=== PATIENT | female | born 1985 | race Hispanic/Latino ===

== ENCOUNTER 2017-08-07 08:26 | Inpatient (IN) | payer MEDICAID ==
[2017-08-07] MEDS ORDERED: ePHEDrine SULFATE IV PRN ×2 (08:42→12:12)
[2017-08-07] MEDS ORDERED: BRETHINE SUB-Q PRN (08:42)
[2017-08-07] MEDS ORDERED: ZOFRAN IV PRN (08:42)
--- NOTE | 2017-08-07 08:50 | History and Physical Report ---
History of Present Illness Date of examination: 08/07/17 Date of admission: 08/07/17 08:26 Chief complaint: postdates IOL History of present illness: EDC Confirmation: 07/28/2017 Past History : 4 Term Births: 1 Premature Births: 0 Living Children: 1 Para: 1 Mult. Births: 0 Prev : 0 Prev. attempt? 0 Aborta: 2 Elect. Ab: 1 Spont. 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 of genital herpes: no Partner hx. of genital herpes: no Genetic History Congenital Heart Defect: Mom: no Dad: no Padmini Disease: Mom: no Dad: no Thalassemia Mom: no Dad: no Neural Tube Defect Mom: no Dad: no Down's Syndrome Mom: no Dad: no Gamal-Sachs Mom: no Dad: no Sickle Cell Disease/Trait Mom: no Dad: no Hemophilia Mom: no Dad: no Muscular Dystrophy Mom: no Dad: no Cystic Fibrosis Mom: no Dad: no Janette Chorea Mom: no Dad: no Mental Retardation Mom: no Dad: no Fragile X Mom: no Dad: no Other Genetic/Chromosomal Disorder Mom: no Dad: no Child w/other defect Mom: no Dad: no Active Medications (reviewed today): FORMULA 27-1 MG ORAL TABLET ( VIT-FE FUMARATE-FA) 1 po q day as directed Current Allergies (reviewed today): No known allergies Past History Past Medical History: other (see HPI) Past Surgical History: other (see HPI) JUNIOR PROJECT COORDINATOR History: other (see HPI) Family/Genetic History: other (see HPI) - Obstetrical History Expected Date of Delivery: 07/28/17 Actual Gestation: 41 Week(s) 3 Day(s) : 4 Para: 1 Hx # Term Pregnancies: 1 Number of Pregnancies: 0 Spontaneous Abortions: 1 Induced : 1 Number of Living Children: 1 Medications and Allergies Allergies Allergy/AdvReac Type Severity Reaction Status Date / Time No Known Allergies Allergy Unverified 08/07/17 09:08 Home Medications Medication Instructions Recorded Confirmed Last Taken Type No Known Home Medications [No 08/07/17 08/07/17 Unknown History Reported Home Medications] Active Meds: Active Medications Butorphanol Tartrate (Stadol) 2 mg IV Q2H PRN PRN Reason: Pain , Severe (7-10) Ephedrine Sulfate (Ephedrine Sulfate) 10 mg IV Q2M PRN PRN Reason: Hypotension Lactated Ringer's (Lactated Ringers) 1,000 mls @ 125 mls/hr IV DIRECT BALAJI Oxytocin/Sodium Chloride (Pitocin/Ns 20 Unit/1000ml Drip) 20 units in 1,000 mls @ 125 mls/hr IV DIRECT BALAJI Oxytocin/Sodium Chloride (Pitocin/Ns 30 Unit/500ml) 30 units in 500 mls @ 4 mls /hr IV TITR BALAJI; Protocol Lidocaine (Xylocaine 2%) 20 ml INFILTRATI ONCE ONE Stop: 08/07/17 08:43 Mineral Oil (Mineral Oil) 30 ml PO QHS PRN PRN Reason: Constipation Ondansetron HCl (Zofran) 4 mg IV Q8H PRN PRN Reason: Nausea And Vomiting Terbutaline Sulfate (Brethine) 0.25 mg SUB-Q ONCE PRN PRN Reason: Hyperstimulation/Hypertonicity Review of Systems All systems: negative - Physical Exam Breasts: Positive: normal Cardiovascular: Regular rate Lungs: Positive: Clear to auscultation, Normal air movement Abdomen: Positive: normal appearance, soft Genitourinary (Female): Positive: normal perenium Vulva: both: normal Vagina: Positive: normal moisture Uterus: Positive: normal size Anus/Rectum: Positive: normal perianal skin Extremities: Positive: normal Deep Tendon Reflex Grade: Normal +2 - Obstetrical FHR: category 2 Results Result Diagrams: 08/07/17 09:14 All other labs normal. Assessment and Plan 32 y/o Admitted to labor and del @ 41+3 weeks for postdates induction. GBS negative, last EFW 07/31 was 7#14oz. presentation at that time was vertex. complicated by late care starting @ 24 weeks and obesity. Admission orders in EMR. - Patient Problems (1) Late care Current Visit: Yes Status: Acute (2) Rubella non-immune status, antepartum Current Visit: Yes Status: Acute Plan to address problem: MMR post (3) 41 weeks gestation of Current Visit: Yes Status: Acute
[2017-08-07] MEDS ORDERED: PITOCin/NS 30 UNIT/500ML 30 UNITS/500 ML BAG IV SCH (09:00)
[2017-08-07] MEDS ORDERED: PITOCin/NS 20 UNIT/1000ML DRIP 20 UNITS/1,000 ML BAG IV SCH ×2 (09:00→21:00)
[2017-08-07] MEDS ORDERED: STADOL IV PRN (09:00)
[2017-08-07] MEDS ORDERED: XYLOCAINE 2% INFILTRATI NR (09:30)
[2017-08-07 09:35] LABS: Hematocrit 38.2 % (30.3-42.9); Hemoglobin 12.4 gm/dl (10.1-14.3); Mean Corpuscular HGB Conc 32 % (30-34); Mean Corpuscular Hemoglobin 29 pg (28-32); Mean Corpuscular Volume 89 fl (79-97); Platelet Count 248 K/mm3 (140-440); Red Blood Count 4.31 M/mm3 (3.65-5.03); Red Cell Distribution Width 15.4 % (13.2-15.2)
[2017-08-07] MEDS: LACTATED RINGERS 1,000 ML IV SCH ×3 (10:05→18:14)
[2017-08-07] MEDS ORDERED: NARCAN 2 MG/2 ML IV PRN (12:12)
--- NOTE | 2017-08-07 12:12 | Anesthesia Consultation ---
Anesthesia Consult and Med Hx Date of service: 08/07/17 - Airway Anesthetic Teeth Evaluation: Good ROM Head & Neck: Adequate Mental/Hyoid Distance: Adequate Mallampati Class: Class II Intubation Access Assessment: Probably Good - Pre-Operative Health Status ASA Pre-Surgery Classification: ASA3 Proposed Anesthetic Plan: Epidural, Spinal - Pulmonary Hx Asthma: No COPD: No Hx Pneumonia: No - Cardiovascular System Hx Hypertension: No - Central Nervous System Hx Seizures: No Hx Psychiatric Problems: No - Endocrine Hx Renal Disease: No Hx End Stage Renal Disease: No Hx Hypothyroidism: No Hx Hyperthyroidism: No - Hematic Hx Anemia: No Hx Sickle Cell Disease: No - Other Systems Hx Alcohol Use: No Hx Obesity: Yes
--- NOTE | 2017-08-07 12:30 | Progress Note ---
Assessment and Plan variables noted on tracing, SVE was 1cm upon admission, now 2-3. AROM - clear/ blood tinged small amount. ISE and IUPC placed without difficulty. Plan for patient to get epidural. Upon discussion of previous delivery, patient states they tried to use a vacuum and then "counted to 3 and all jumped on the top of my abdomen." Patient does not think the baby's head was delivered at the time, she says the baby was in distress and delivered quickly after staff's interventions. Discussed possible shoulder dystocia and concerns because this baby's efw 1lb > then last delivery. Patient states her child did not have any fractures or nerve damage. Patient desires to continue IOL verses operative delivery. Will proceed with caution and notify Dr. Savage. - Patient Problems (1) Late care Current Visit: Yes Status: Acute (2) Rubella non-immune status, antepartum Current Visit: Yes Status: Acute (3) 41 weeks gestation of Current Visit: Yes Status: Acute Subjective - Subjective Date of service: 08/07/17 Principal diagnosis: IUP @ 41+3, postdates IOL Interval history: EDC Confirmation: 07/28/2017 Past History : 4 Term Births: 1 Premature Births: 0 Living Children: 1 Para: 1 Mult. Births: 0 Prev : 0 Prev. attempt? 0 Aborta: 2 Elect. Ab: 1 Spont. 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 of genital herpes: no Partner hx. of genital herpes: no Genetic History Congenital Heart Defect: Mom: no Dad: no Padmini Disease: Mom: no Dad: no Thalassemia Mom: no Dad: no Neural Tube Defect Mom: no Dad: no Down's Syndrome Mom: no Dad: no Gamal-Sachs Mom: no Dad: no Sickle Cell Disease/Trait Mom: no Dad: no Hemophilia Mom: no Dad: no Muscular Dystrophy Mom: no Dad: no Cystic Fibrosis Mom: no Dad: no Carnation Chorea Mom: no Dad: no Mental Retardation Mom: no Dad: no Fragile X Mom: no Dad: no Other Genetic/Chromosomal Disorder Mom: no Dad: no Child w/other defect Mom: no Dad: no Active Medications (reviewed today): FORMULA 27-1 MG ORAL TABLET ( VIT-FE FUMARATE-FA) 1 po q day as directed Current Allergies (reviewed today): No known allergies Patient reports: movement normal, contractions Objective - Vital Signs Vital Signs: Vital Signs - 12hr 08/07/17 08/07/17 08/07/17 08:56 09:34 09:38 Temperature 98.4 F Pulse Rate 74 95 H 95 H Respiratory 18 Rate Blood Pressure 118/70 117/71 Blood Pressure 117/71 [Left] O2 Sat by Pulse 99 Oximetry 08/07/17 08/07/17 08/07/17 09:40 09:45 10:01 Temperature Pulse Rate 88 90 72 Respiratory Rate Blood Pressure Blood Pressure [Left] O2 Sat by Pulse 98 97 96 Oximetry 08/07/17 08/07/17 08/07/17 10:07 10:12 10:14 Temperature Pulse Rate 85 92 H 85 Respiratory Rate Blood Pressure Blood Pressure [Left] O2 Sat by Pulse 96 94 94 Oximetry 08/07/17 08/07/1718 10:15 10:17 10:20 Temperature Pulse Rate 81 76 79 Respiratory Rate Blood Pressure 110/66 Blood Pressure [Left] O2 Sat by Pulse 94 94 Oximetry 08/07/17 08/07/17 08/07/17 10:22 10:27 10:32 Temperature Pulse Rate 77 90 84 Respiratory Rate Blood Pressure Blood Pressure [Left] O2 Sat by Pulse 94 97 96 Oximetry 08/07/17 08/07/17 08/07/17 10:37 10:41 10:43 Temperature Pulse Rate 75 78 73 Respiratory Rate Blood Pressure 114/67 Blood Pressure [Left] O2 Sat by Pulse 95 96 Oximetry 08/07/17 08/07/17 08/07/17 10:48 10:53 11:02 Temperature Pulse Rate 74 82 73 Respiratory Rate Blood Pressure Blood Pressure [Left] O2 Sat by Pulse 96 96 97 Oximetry 08/07/17 08/07/17 08/07/17 11:07 11:12 11:17 Temperature Pulse Rate 78 80 76 Respiratory Rate Blood Pressure Blood Pressure [Left] O2 Sat by Pulse 96 96 97 Oximetry 08/07/17 08/07/17 08/07/17 11:19 11:22 11:27 Temperature Pulse Rate 83 71 88 Respiratory Rate Blood Pressure 110/68 Blood Pressure [Left] O2 Sat by Pulse 98 96 Oximetry 08/07/17 08/07/17 08/07/17 11:32 11:37 11:42 Temperature Pulse Rate 72 85 77 Respiratory Rate Blood Pressure 113/63 Blood Pressure [Left] O2 Sat by Pulse 96 96 97 Oximetry 08/07/17 08/07/17 08/07/17 11:47 11:52 11:57 Temperature Pulse Rate 77 75 74 Respiratory Rate Blood Pressure Blood Pressure [Left] O2 Sat by Pulse 97 96 98 Oximetry 08/07/17 08/07/17 08/07/17 12:02 12:07 12:11 Temperature Pulse Rate 72 69 70 Respiratory 20 Rate Blood Pressure 112/63 Blood Pressure [Left] O2 Sat by Pulse 98 97 Oximetry 08/07/17 12:12 Temperature Pulse Rate 77 Respiratory Rate Blood Pressure Blood Pressure [Left] O2 Sat by Pulse 96 Oximetry - Exam Breasts: normal Cardiovascular: Regular rate Lungs: Clear to auscultation, Normal air movement Abdomen: Present: normal appearance, soft Vulva: both: normal FHR: category 2 Uterine Contraction Monitor Mode: Internal Cervical Dilatation: 2.5 (posterior) Cervical Effacement Percentage: 70 station: -1 Uterine Contraction Frequency (min): 2-3 Uterine Contraction Duration: 60 Uterine Contraction Pattern: Regular Uterine Contraction Intensity: Mild Extremities: normal Deep Tendon Reflex Grade: Normal +2 - Labs Labs: Abnormal Labs 08/07/17 09:14 WBC 14.7 H RDW 15.4 H Laboratory Results - last 24 hr 08/07/17 08/07/17 08/07/17 09:14 09:14 09:14 WBC 14.7 H RBC 4.31 Hgb 12.4 Hct 38.2 MCV 89 MCH 29 MCHC 32 RDW 15.4 H Plt Count 248 RPR Nonreactive Blood Type A POSITIVE Antibody Screen Negative
[2017-08-07] MEDS ORDERED: fentaNYL-BUPIV 2 MCG/ML-0.125% 200 MCG/100 ML BAG EPIDURAL SCH (13:00)
--- NOTE | 2017-08-07 16:29 | Progress Note ---
Assessment and Plan IUPC replaced, SVE still posterior but soft/stretchy /-1, head well applied. no moulding or caput noted at this time. Pitocin off d/t decels in fht. Will restart pitocin and continue to monitor. - Patient Problems (1) Late care Current Visit: Yes Status: Acute (2) Rubella non-immune status, antepartum Current Visit: Yes Status: Acute (3) 41 weeks gestation of Current Visit: Yes Status: Acute Subjective - Subjective Date of service: 08/07/17 Principal diagnosis: IUP @ 41+3, postdates IOL Interval history: EDC Confirmation: 07/28/2017 Past History : 4 Term Births: 1 Premature Births: 0 Living Children: 1 Para: 1 Mult. Births: 0 Prev : 0 Prev. attempt? 0 Aborta: 2 Elect. Ab: 1 Spont. 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 of genital herpes: no Partner hx. of genital herpes: no Genetic History Congenital Heart Defect: Mom: no Dad: no Padmini Disease: Mom: no Dad: no Thalassemia Mom: no Dad: no Neural Tube Defect Mom: no Dad: no Down's Syndrome Mom: no Dad: no Gamal-Sachs Mom: no Dad: no Sickle Cell Disease/Trait Mom: no Dad: no Hemophilia Mom: no Dad: no Muscular Dystrophy Mom: no Dad: no Cystic Fibrosis Mom: no Dad: no Winston Chorea Mom: no Dad: no Mental Retardation Mom: no Dad: no Fragile X Mom: no Dad: no Other Genetic/Chromosomal Disorder Mom: no Dad: no Child w/other defect Mom: no Dad: no Active Medications (reviewed today): FORMULA 27-1 MG ORAL TABLET ( VIT-FE FUMARATE-FA) 1 po q day as directed Current Allergies (reviewed today): No known allergies Patient reports: movement normal, no new complaints (comfortable s/p epidural) Objective - Vital Signs Vital Signs: Vital Signs - 12hr 08/07/17 08/07/17 08/07/17 08:56 09:34 09:38 Temperature 98.4 F Pulse Rate 74 95 H 95 H Respiratory 18 Rate Blood Pressure 118/70 117/71 Blood Pressure 117/71 [Left] O2 Sat by Pulse 99 Oximetry 08/07/17 08/07/17 08/07/17 09:40 09:45 10:01 Temperature Pulse Rate 88 90 72 Respiratory Rate Blood Pressure Blood Pressure [Left] O2 Sat by Pulse 98 97 96 Oximetry 08/07/17 08/07/17 08/07/17 10:07 10:12 10:14 Temperature Pulse Rate 85 92 H 85 Respiratory Rate Blood Pressure Blood Pressure [Left] O2 Sat by Pulse 96 94 94 Oximetry 08/07/17 08/07/17 08/07/17 10:15 10:17 10:20 Temperature Pulse Rate 81 76 79 Respiratory Rate Blood Pressure 110/66 Blood Pressure [Left] O2 Sat by Pulse 94 94 Oximetry 08/07/17 08/07/17 08/07/17 10:22 10:27 10:32 Temperature Pulse Rate 77 90 84 Respiratory Rate Blood Pressure Blood Pressure [Left] O2 Sat by Pulse 94 97 96 Oximetry 08/07/17 08/07/17 08/07/17 10:37 10:41 10:43 Temperature Pulse Rate 75 78 73 Respiratory Rate Blood Pressure 114/67 Blood Pressure [Left] O2 Sat by Pulse 95 96 Oximetry 08/07/17 08/07/17 08/07/17 10:48 10:53 11:02 Temperature Pulse Rate 74 82 73 Respiratory Rate Blood Pressure Blood Pressure [Left] O2 Sat by Pulse 96 96 97 Oximetry 08/07/17 08/07/17 08/07/17 11:07 11:12 11:17 Temperature Pulse Rate 78 80 76 Respiratory Rate Blood Pressure Blood Pressure [Left] O2 Sat by Pulse 96 96 97 Oximetry 08/07/17 08/07/17 08/07/17 11:19 11:22 11:27 Temperature Pulse Rate 83 71 88 Respiratory Rate Blood Pressure 110/68 Blood Pressure [Left] O2 Sat by Pulse 98 96 Oximetry 08/07/17 08/07/17 08/07/17 11:32 11:37 11:42 Temperature Pulse Rate 72 85 77 Respiratory Rate Blood Pressure 113/63 Blood Pressure [Left] O2 Sat by Pulse 96 96 97 Oximetry 08/07/17 08/07/17 08/07/17 11:47 11:52 11:57 Temperature Pulse Rate 77 75 74 Respiratory Rate Blood Pressure Blood Pressure [Left] O2 Sat by Pulse 97 96 98 Oximetry 08/07/17 08/07/17 08/07/17 12:02 12:07 12:11 Temperature Pulse Rate 72 69 70 Respiratory 20 Rate Blood Pressure 112/63 Blood Pressure [Left] O2 Sat by Pulse 98 97 Oximetry 08/07/17 08/07/17 08/07/17 12:12 12:17 12:22 Temperature Pulse Rate 77 70 78 Respiratory Rate Blood Pressure Blood Pressure [Left] O2 Sat by Pulse 96 97 96 Oximetry 08/07/17 08/07/17 08/07/17 12:27 12:32 12:37 Temperature Pulse Rate 86 80 71 Respiratory 18 Rate Blood Pressure Blood Pressure [Left] O2 Sat by Pulse 97 96 97 Oximetry 08/07/17 08/07/17 08/07/17 12:41 12:42 12:47 Temperature Pulse Rate 67 65 69 Respiratory Rate Blood Pressure 100/59 Blood Pressure [Left] O2 Sat by Pulse 97 96 Oximetry 08/07/17 08/07/17 08/07/17 12:51 12:52 12:57 Temperature Pulse Rate 59 L 59 L 73 Respiratory Rate Blood Pressure Blood Pressure [Left] O2 Sat by Pulse 94 97 98 Oximetry 08/07/17 08/07/17 08/07/17 13:02 13:07 13:08 Temperature Pulse Rate 67 72 75 Respiratory Rate Blood Pressure 120/62 Blood Pressure [Left] O2 Sat by Pulse 98 96 Oximetry 08/07/17 08/07/17 08/07/17 13:10 13:12 13:13 Temperature Pulse Rate 80 69 69 Respiratory Rate Blood Pressure 122/65 139/55 Blood Pressure [Left] O2 Sat by Pulse 96 Oximetry 08/07/17 08/07/17 08/07/17 13:14 13:15 13:16 Temperature Pulse Rate 57 L 60 57 L Respiratory Rate Blood Pressure 124/63 112/59 Blood Pressure [Left] O2 Sat by Pulse 94 Oximetry 08/07/17 08/07/17 08/07/17 13:17 13:18 13:22 Temperature Pulse Rate 65 66 78 Respiratory Rate Blood Pressure 113/60 Blood Pressure [Left] O2 Sat by Pulse 96 97 Oximetry 08/07/17 08/07/17 08/07/17 13:27 13:32 13:33 Temperature Pulse Rate 73 78 77 Respiratory Rate Blood Pressure Blood Pressure [Left] O2 Sat by Pulse 97 97 94 Oximetry 08/07/17 08/07/17 08/07/17 13:37 13:42 13:47 Temperature Pulse Rate 69 68 81 Respiratory Rate Blood Pressure Blood Pressure [Left] O2 Sat by Pulse 96 95 97 Oximetry 08/07/17 08/07/17 08/07/17 13:51 13:52 13:57 Temperature Pulse Rate 74 64 60 Respiratory Rate Blood Pressure 128/57 Blood Pressure [Left] O2 Sat by Pulse 98 98 Oximetry 08/07/17 08/07/17 08/07/17 14:00 14:02 14:07 Temperature Pulse Rate 63 69 83 Respiratory Rate Blood Pressure Blood Pressure [Left] O2 Sat by Pulse 94 98 97 Oximetry 08/07/17 08/07/17 08/07/17 14:12 14:17 14:21 Temperature Pulse Rate 59 L 60 65 Respiratory Rate Blood Pressure 111/59 Blood Pressure [Left] O2 Sat by Pulse 98 98 Oximetry 08/07/17 08/07/17 08/07/17 14:22 14:26 14:27 Temperature Pulse Rate 72 78 71 Respiratory Rate Blood Pressure Blood Pressure [Left] O2 Sat by Pulse 97 94 98 Oximetry 08/07/17 08/07/17 08/07/17 14:32 14:34 14:37 Temperature Pulse Rate 61 71 64 Respiratory Rate Blood Pressure Blood Pressure [Left] O2 Sat by Pulse 97 94 97 Oximetry 08/07/17 08/07/17 08/07/17 14:42 14:47 14:50 Temperature Pulse Rate 59 L 65 59 L Respiratory Rate Blood Pressure 105/58 Blood Pressure [Left] O2 Sat by Pulse 100 99 Oximetry 08/07/17 08/07/17 08/07/17 14:52 14:57 15:02 Temperature Pulse Rate 61 60 63 Respiratory Rate Blood Pressure Blood Pressure [Left] O2 Sat by Pulse 99 96 94 Oximetry 08/07/17 08/07/17 08/07/17 15:03 15:07 15:12 Temperature Pulse Rate 63 78 60 Respiratory Rate Blood Pressure Blood Pressure [Left] O2 Sat by Pulse 94 97 95 Oximetry 08/07/17 08/07/17 08/07/17 15:13 15:17 15:19 Temperature Pulse Rate 72 64 70 Respiratory Rate Blood Pressure 105/57 Blood Pressure [Left] O2 Sat by Pulse 94 100 Oximetry 08/07/17 08/07/17 08/07/17 15:22 15:27 15:32 Temperature Pulse Rate 62 78 66 Respiratory Rate Blood Pressure Blood Pressure [Left] O2 Sat by Pulse 97 97 97 Oximetry 08/07/17 08/07/17 08/07/17 15:34 15:38 15:43 Temperature Pulse Rate 61 63 Respiratory 18 Rate Blood Pressure Blood Pressure [Left] O2 Sat by Pulse 100 99 Oximetry 08/07/17 08/07/17 08/07/17 15:48 15:50 15:53 Temperature Pulse Rate 72 61 82 Respiratory Rate Blood Pressure 115/58 Blood Pressure [Left] O2 Sat by Pulse 98 97 Oximetry 08/07/17 08/07/17 08/07/17 15:58 16:03 16:08 Temperature Pulse Rate 63 72 94 H Respiratory Rate Blood Pressure Blood Pressure [Left] O2 Sat by Pulse 97 98 98 Oximetry 08/07/17 08/07/17 08/07/17 16:13 16:18 16:20 Temperature Pulse Rate 63 75 66 Respiratory Rate Blood Pressure 111/67 Blood Pressure [Left] O2 Sat by Pulse 100 98 Oximetry 08/07/17 08/07/17 16:23 16:28 Temperature Pulse Rate 69 79 Respiratory Rate Blood Pressure Blood Pressure [Left] O2 Sat by Pulse 100 100 Oximetry - Exam Breasts: normal Cardiovascular: Regular rate Lungs: Clear to auscultation, Normal air movement Abdomen: Present: normal appearance, soft Vulva: both: normal Uterus: Present: normal FHR: auscultation normal, category 1 Uterine Contraction Monitor Mode: Internal Cervical Dilatation: 4 Cervical Effacement Percentage: 85 station: -1 Uterine Contraction Frequency (min): 3-4 Uterine Contraction Duration: 60 Uterine Contraction Pattern: Regular Uterine Tone Measurement Phase: Contraction Uterine Contraction Intensity: Mild Extremities: normal Deep Tendon Reflex Grade: Normal +2 - Labs Labs: Abnormal Labs 08/07/17 09:14 WBC 14.7 H RDW 15.4 H Laboratory Results - last 24 hr 08/07/17 08/07/17 08/07/17 09:14 09:14 09:14 WBC 14.7 H RBC 4.31 Hgb 12.4 Hct 38.2 MCV 89 MCH 29 MCHC 32 RDW 15.4 H Plt Count 248 RPR Nonreactive Blood Type A POSITIVE Antibody Screen Negative
[2017-08-07] MEDS ORDERED: BICITRA PO ONE (20:32)
[2017-08-07] MEDS ORDERED: REGLAN IV ONE (20:32)
[2017-08-07] MEDS ORDERED: PEPCID IV ONE (20:32)
--- NOTE | 2017-08-07 20:44 | Progress Note ---
Assessment and Plan - Patient Problems (1) Failure of cervical dilation Current Visit: Yes Status: Acute Plan to address problem: No cervical change since 0. Options reviewed as well as risks. questions were encouraged and answered, consents were reviewed and signed. She voiced understanding and desires to proceed with delivery. (2) 41 weeks gestation of Current Visit: Yes Status: Acute (3) Late care Current Visit: Yes Status: Acute (4) Rubella non-immune status, antepartum Current Visit: Yes Status: Acute Subjective - Subjective Principal diagnosis: IUP @ 41+3, postdates IOL Patient reports: movement normal, no new complaints (comfortable s/p epidural) Objective - Vital Signs Vital Signs: Vital Signs - 12hr 08/07/17 08/07/17 08/07/17 08:56 09:34 09:38 Temperature 98.4 F Pulse Rate 74 95 H 95 H Respiratory 18 Rate Blood Pressure 118/70 117/71 Blood Pressure 117/71 [Left] O2 Sat by Pulse 99 Oximetry 08/07/17 08/07/17 08/07/17 09:40 09:45 10:01 Temperature Pulse Rate 88 90 72 Respiratory Rate Blood Pressure Blood Pressure [Left] O2 Sat by Pulse 98 97 96 Oximetry 08/07/17 08/07/17 08/07/17 10:07 10:12 10:14 Temperature Pulse Rate 85 92 H 85 Respiratory Rate Blood Pressure Blood Pressure [Left] O2 Sat by Pulse 96 94 94 Oximetry 08/07/17 08/07/17 08/07/17 10:15 10:17 10:20 Temperature Pulse Rate 81 76 79 Respiratory Rate Blood Pressure 110/66 Blood Pressure [Left] O2 Sat by Pulse 94 94 Oximetry 08/07/17 08/07/17 08/07/17 10:22 10:27 10:32 Temperature Pulse Rate 77 90 84 Respiratory Rate Blood Pressure Blood Pressure [Left] O2 Sat by Pulse 94 97 96 Oximetry 08/07/17 08/07/17 08/07/17 10:37 10:41 10:43 Temperature Pulse Rate 75 78 73 Respiratory Rate Blood Pressure 114/67 Blood Pressure [Left] O2 Sat by Pulse 95 96 Oximetry 08/07/17 08/07/17 08/07/17 10:48 10:53 11:02 Temperature Pulse Rate 74 82 73 Respiratory Rate Blood Pressure Blood Pressure [Left] O2 Sat by Pulse 96 96 97 Oximetry 08/07/17 08/07/17 08/07/17 11:07 11:12 11:17 Temperature Pulse Rate 78 80 76 Respiratory Rate Blood Pressure Blood Pressure [Left] O2 Sat by Pulse 96 96 97 Oximetry 08/07/17 08/07/17 08/07/17 11:19 11:22 11:27 Temperature Pulse Rate 83 71 88 Respiratory Rate Blood Pressure 110/68 Blood Pressure [Left] O2 Sat by Pulse 98 96 Oximetry 08/07/17 08/07/17 08/07/17 11:32 11:37 11:42 Temperature Pulse Rate 72 85 77 Respiratory Rate Blood Pressure 113/63 Blood Pressure [Left] O2 Sat by Pulse 96 96 97 Oximetry 08/07/17 08/07/17 08/07/17 11:47 11:52 11:57 Temperature Pulse Rate 77 75 74 Respiratory Rate Blood Pressure Blood Pressure [Left] O2 Sat by Pulse 97 96 98 Oximetry 08/07/17 08/07/17 08/07/17 12:02 12:07 12:11 Temperature Pulse Rate 72 69 70 Respiratory 20 Rate Blood Pressure 112/63 Blood Pressure [Left] O2 Sat by Pulse 98 97 Oximetry 08/07/17 08/07/17 08/07/17 12:12 12:17 12:22 Temperature Pulse Rate 77 70 78 Respiratory Rate Blood Pressure Blood Pressure [Left] O2 Sat by Pulse 96 97 96 Oximetry 08/07/17 08/07/17 08/07/17 12:27 12:32 12:37 Temperature Pulse Rate 86 80 71 Respiratory 18 Rate Blood Pressure Blood Pressure [Left] O2 Sat by Pulse 97 96 97 Oximetry 08/07/17 08/07/17 08/07/17 12:41 12:42 12:47 Temperature Pulse Rate 67 65 69 Respiratory Rate Blood Pressure 100/59 Blood Pressure [Left] O2 Sat by Pulse 97 96 Oximetry 08/07/17 08/07/17 08/07/17 12:51 12:52 12:57 Temperature Pulse Rate 59 L 59 L 73 Respiratory Rate Blood Pressure Blood Pressure [Left] O2 Sat by Pulse 94 97 98 Oximetry 08/07/17 08/07/17 08/07/17 13:02 13:07 13:08 Temperature Pulse Rate 67 72 75 Respiratory Rate Blood Pressure 120/62 Blood Pressure [Left] O2 Sat by Pulse 98 96 Oximetry 08/07/17 08/07/17 08/07/17 13:10 13:12 13:13 Temperature Pulse Rate 80 69 69 Respiratory Rate Blood Pressure 122/65 139/55 Blood Pressure [Left] O2 Sat by Pulse 96 Oximetry 08/07/17 08/07/17 08/07/17 13:14 13:15 13:16 Temperature Pulse Rate 57 L 60 57 L Respiratory Rate Blood Pressure 124/63 112/59 Blood Pressure [Left] O2 Sat by Pulse 94 Oximetry 08/07/17 08/07/17 08/07/17 13:17 13:18 13:22 Temperature Pulse Rate 65 66 78 Respiratory Rate Blood Pressure 113/60 Blood Pressure [Left] O2 Sat by Pulse 96 97 Oximetry 08/07/17 08/07/17 08/07/17 13:27 13:32 13:33 Temperature Pulse Rate 73 78 77 Respiratory Rate Blood Pressure Blood Pressure [Left] O2 Sat by Pulse 97 97 94 Oximetry 08/07/17 08/07/17 08/07/17 13:37 13:42 13:47 Temperature Pulse Rate 69 68 81 Respiratory Rate Blood Pressure Blood Pressure [Left] O2 Sat by Pulse 96 95 97 Oximetry 08/07/17 08/07/17 08/07/17 13:51 13:52 13:57 Temperature Pulse Rate 74 64 60 Respiratory Rate Blood Pressure 128/57 Blood Pressure [Left] O2 Sat by Pulse 98 98 Oximetry 08/07/17 08/07/17 08/07/17 14:00 14:02 14:07 Temperature Pulse Rate 63 69 83 Respiratory Rate Blood Pressure Blood Pressure [Left] O2 Sat by Pulse 94 98 97 Oximetry 08/07/17 08/07/17 08/07/17 14:12 14:17 14:21 Temperature Pulse Rate 59 L 60 65 Respiratory Rate Blood Pressure 111/59 Blood Pressure [Left] O2 Sat by Pulse 98 98 Oximetry 08/07/17 08/07/17 08/07/17 14:22 14:26 14:27 Temperature Pulse Rate 72 78 71 Respiratory Rate Blood Pressure Blood Pressure [Left] O2 Sat by Pulse 97 94 98 Oximetry 08/07/17 08/07/17 08/07/17 14:32 14:34 14:37 Temperature Pulse Rate 61 71 64 Respiratory Rate Blood Pressure Blood Pressure [Left] O2 Sat by Pulse 97 94 97 Oximetry 08/07/17 08/07/17 08/07/17 14:42 14:47 14:50 Temperature Pulse Rate 59 L 65 59 L Respiratory Rate Blood Pressure 105/58 Blood Pressure [Left] O2 Sat by Pulse 100 99 Oximetry 08/07/17 08/07/17 08/07/17 14:52 14:57 15:02 Temperature Pulse Rate 61 60 63 Respiratory Rate Blood Pressure Blood Pressure [Left] O2 Sat by Pulse 99 96 94 Oximetry 08/07/17 08/07/17 08/07/17 15:03 15:07 15:12 Temperature Pulse Rate 63 78 60 Respiratory Rate Blood Pressure Blood Pressure [Left] O2 Sat by Pulse 94 97 95 Oximetry 08/07/17 08/07/17 08/07/17 15:13 15:17 15:19 Temperature Pulse Rate 72 64 70 Respiratory Rate Blood Pressure 105/57 Blood Pressure [Left] O2 Sat by Pulse 94 100 Oximetry 08/07/17 08/07/17 08/07/17 15:22 15:27 15:32 Temperature Pulse Rate 62 78 66 Respiratory Rate Blood Pressure Blood Pressure [Left] O2 Sat by Pulse 97 97 97 Oximetry 08/07/17 08/07/17 08/07/17 15:34 15:38 15:43 Temperature Pulse Rate 61 63 Respiratory 18 Rate Blood Pressure Blood Pressure [Left] O2 Sat by Pulse 100 99 Oximetry 08/07/17 08/07/17 08/07/17 15:48 15:50 15:53 Temperature Pulse Rate 72 61 82 Respiratory Rate Blood Pressure 115/58 Blood Pressure [Left] O2 Sat by Pulse 98 97 Oximetry 08/07/17 08/07/17 08/07/17 15:58 16:03 16:08 Temperature Pulse Rate 63 72 94 H Respiratory Rate Blood Pressure Blood Pressure [Left] O2 Sat by Pulse 97 98 98 Oximetry 08/07/17 08/07/17 08/07/17 16:13 16:18 16:20 Temperature Pulse Rate 63 75 66 Respiratory Rate Blood Pressure 111/67 Blood Pressure [Left] O2 Sat by Pulse 100 98 Oximetry 08/07/17 08/07/17 08/07/17 16:23 16:28 16:33 Temperature Pulse Rate 69 79 92 H Respiratory Rate Blood Pressure Blood Pressure [Left] O2 Sat by Pulse 100 100 97 Oximetry 08/07/17 08/07/17 08/07/17 16:38 16:40 16:43 Temperature Pulse Rate 87 83 94 H Respiratory Rate Blood Pressure Blood Pressure [Left] O2 Sat by Pulse 97 92 96 Oximetry 08/07/17 08/07/17 08/07/17 16:48 16:52 16:53 Temperature Pulse Rate 67 98 H 102 H Respiratory Rate Blood Pressure Blood Pressure [Left] O2 Sat by Pulse 99 94 93 Oximetry 08/07/17 08/07/17 08/07/17 16:57 16:58 17:03 Temperature Pulse Rate 83 68 95 H Respiratory Rate Blood Pressure Blood Pressure [Left] O2 Sat by Pulse 92 100 95 Oximetry 08/07/17 08/07/17 08/07/17 17:08 17:13 17:18 Temperature Pulse Rate 67 88 98 H Respiratory Rate Blood Pressure Blood Pressure [Left] O2 Sat by Pulse 99 97 100 Oximetry 08/07/17 08/07/17 08/07/17 17:19 17:23 17:28 Temperature Pulse Rate 76 74 82 Respiratory Rate Blood Pressure 105/54 Blood Pressure [Left] O2 Sat by Pulse 99 99 Oximetry 08/07/17 08/07/17 08/07/17 17:33 17:38 17:43 Temperature Pulse Rate 86 80 76 Respiratory Rate Blood Pressure Blood Pressure [Left] O2 Sat by Pulse 98 98 97 Oximetry 08/07/17 08/07/17 08/07/17 17:48 17:51 17:53 Temperature Pulse Rate 99 H 74 72 Respiratory Rate Blood Pressure 105/52 Blood Pressure [Left] O2 Sat by Pulse 97 96 Oximetry 08/07/17 08/07/17 08/07/17 17:58 18:03 18:07 Temperature Pulse Rate 73 94 H 99 H Respiratory Rate Blood Pressure Blood Pressure [Left] O2 Sat by Pulse 99 96 94 Oximetry 08/07/17 08/07/17 08/07/17 18:08 18:12 18:13 Temperature Pulse Rate 104 H 98 H 72 Respiratory Rate Blood Pressure Blood Pressure [Left] O2 Sat by Pulse 98 94 98 Oximetry 08/07/17 08/07/17 08/07/17 18:17 18:18 18:19 Temperature Pulse Rate 89 94 H 111 H Respiratory Rate Blood Pressure 96/56 Blood Pressure [Left] O2 Sat by Pulse 93 97 Oximetry 08/07/17 08/07/17 08/07/17 18:23 18:28 18:29 Temperature Pulse Rate 98 H 104 H 107 H Respiratory Rate Blood Pressure Blood Pressure [Left] O2 Sat by Pulse 95 95 94 Oximetry 08/07/17 08/07/17 08/07/17 18:33 18:38 18:43 Temperature Pulse Rate 92 H 80 76 Respiratory Rate Blood Pressure Blood Pressure [Left] O2 Sat by Pulse 95 96 98 Oximetry 08/07/17 08/07/17 08/07/17 18:48 18:49 18:51 Temperature Pulse Rate 100 H 82 78 Respiratory Rate Blood Pressure 109/56 Blood Pressure [Left] O2 Sat by Pulse 98 94 Oximetry 08/07/17 08/07/17 08/07/17 18:53 18:58 19:01 Temperature Pulse Rate 74 92 H 86 Respiratory Rate Blood Pressure Blood Pressure [Left] O2 Sat by Pulse 98 95 94 Oximetry 08/07/17 08/07/17 08/07/17 19:03 19:05 19:08 Temperature 99.1 F Pulse Rate 67 72 72 Respiratory 16 Rate Blood Pressure Blood Pressure 103/56 [Left] O2 Sat by Pulse 98 98 98 Oximetry 08/07/17 08/07/17 08/07/17 19:10 19:13 19:18 Temperature Pulse Rate 86 95 H 94 H Respiratory Rate Blood Pressure 103/56 Blood Pressure [Left] O2 Sat by Pulse 96 95 Oximetry 08/07/17 08/07/17 08/07/17 19:20 19:21 19:23 Temperature Pulse Rate 84 71 81 Respiratory Rate Blood Pressure 99/51 Blood Pressure [Left] O2 Sat by Pulse 94 95 Oximetry 08/07/17 08/07/17 08/07/17 19:25 19:28 19:31 Temperature Pulse Rate 94 H 76 78 Respiratory Rate Blood Pressure Blood Pressure [Left] O2 Sat by Pulse 94 97 94 Oximetry 08/07/17 08/07/17 08/07/17 19:33 19:38 19:39 Temperature Pulse Rate 94 H 88 80 Respiratory Rate Blood Pressure Blood Pressure [Left] O2 Sat by Pulse 95 97 94 Oximetry 08/07/17 08/07/17 08/07/17 19:43 19:46 19:48 Temperature Pulse Rate 87 86 91 H Respiratory Rate Blood Pressure Blood Pressure [Left] O2 Sat by Pulse 94 94 95 Oximetry 04/07/2208/07/17 08/07/17 19:49 19:52 19:53 Temperature Pulse Rate 93 H 73 92 H Respiratory Rate Blood Pressure 113/51 Blood Pressure [Left] O2 Sat by Pulse 94 95 Oximetry 08/07/17 08/07/17 08/07/17 19:58 20:02 20:03 Temperature Pulse Rate 85 88 93 H Respiratory Rate Blood Pressure Blood Pressure [Left] O2 Sat by Pulse 96 94 96 Oximetry 08/07/17 08/07/17 08/07/17 20:07 20:08 20:13 Temperature Pulse Rate 84 93 H 77 Respiratory Rate Blood Pressure Blood Pressure [Left] O2 Sat by Pulse 94 99 96 Oximetry 08/07/17 08/07/17 08/07/17 20:18 20:20 20:23 Temperature Pulse Rate 83 76 96 H Respiratory Rate Blood Pressure 118/70 Blood Pressure [Left] O2 Sat by Pulse 100 98 Oximetry 08/07/17 08/07/17 20:28 20:33 Temperature Pulse Rate 79 87 Respiratory Rate Blood Pressure Blood Pressure [Left] O2 Sat by Pulse 96 99 Oximetry - Exam Breasts: deferred Lungs: Normal air movement Vulva: both: normal FHR: category 2 (occasional late, good variability) Cervical Dilatation: 5 (swollen) Cervical Effacement Percentage: 70 station: -2 Uterine Contraction Pattern: Regular - Labs Labs: Abnormal Labs 08/07/17 09:14 WBC 14.7 H RDW 15.4 H Laboratory Results - last 24 hr 08/07/17 08/07/17 08/07/17 09:14 09:14 09:14 WBC 14.7 H RBC 4.31 Hgb 12.4 Hct 38.2 MCV 89 MCH 29 MCHC 32 RDW 15.4 H Plt Count 248 RPR Nonreactive Blood Type A POSITIVE Antibody Screen Negative
[2017-08-07] MEDS ORDERED: NACL 0.9% IR ONE (20:45)
[2017-08-07] MEDS ORDERED: WATER FOR IRRIG STERILE IR ONE (20:45)
[2017-08-07] MEDS ORDERED: LACTATED RINGERS 1,000 ML IV SCH (21:00)
[2017-08-07] MEDS ORDERED: ASTRAMORPH PF 10MG/10ML ONE (21:30)
[2017-08-07] MEDS ORDERED: MINERAL OIL PO PRN (22:00)
--- NOTE | 2017-08-07 22:22 | Operative Report ---
Operative Report Operative Report: Date: 08/07/2017 Preoperative diagnosis: 1. Intrauterine at 41 weeks 2. Failure to dilate Postoperative diagnosis: 1. Intrauterine at 41 weeks 2. Failure to dilate Procedure: Low uterine transverse incision for delivery Surgeon: Ana Savage MD Pbx Wire Chief: [] Anesthesia: Epidural Anesthesiologist: Dr. Perez Estimated blood loss: 600 mL Urine out: 150 mL Findings: Live born female . Weight 8 lbs. 12 oz. Apgars 8 at 1 minute and 9 at 9 minutes. Uterus normal, tubes normal, ovaries normal. Procedure: After risk, benefits, complications, consequences and alternatives for this procedure were discussed with patient and consents were reviewed and signed, she was taken to the OR where epidural anesthesia was bolused. She was then placed in the left lateral tilt position, and prepped and draped in the usual sterile fashion. Timeout was performed, and an appropriate level of anesthesia was noted, a Pfannenstiel incision was made and extended to the fascia which was incised and extended in the lateral directions. The overlying fascia was sharply dissected away from the underlying rectus muscles in the superior and inferior directions. The midline was entered bluntly. The vesicouterine fold was incised and with blunt dissection the bladder flap was created. A transverse incision was made in the lower uterine segment and extended in superiolateral direction with finger fractionation. A small amount of clear fluid was noted. The infant was delivered from cephalic position. Mouth and nose were bulb suctioned. Spontaneous cry and excellent tone were noted. Cord was doubly clamped and cut. The infant was given to /resuscitation team present. The placenta was manually extracted. The uterus was then exteriorized and cleared of any further products of conception or placental tissue. The incision was reapproximated using 0 Vicryl in a running interlocking stitch. Grossly normal uterus, tubes and ovaries were noted. Once hemostasis was noted, the uterus was allowed back into the pelvic cavity. The pelvis was irrigated with warm normal saline. Again hemostasis was noted . Surgicel applied for further hemostasis. Interceed was then placed to prevent adhesions. Then attention was turned to the rectus muscles. The rectus muscles reapproximated using 0 Vicryl in a simple interrupted stitch x 3. Once hemostasis was noted, the fascia was reapproximated using 0 Vicryl running stitch fashion. Once hemostasis was noted skin incision was reapproximated using 4-0 Vicryl on a Beni needle in a subcuticular manner. Counts were correct 3. Patient tolerated procedure well state recovery room in stable condition.
[2017-08-07] MEDS ORDERED: PHENERGAN PR PRN (22:35)
[2017-08-07] MEDS ORDERED: DILAUDID IM PRN (22:49)
[2017-08-07] MEDS ORDERED: SODIUM CHLORIDE FLUSH SYRINGE 10 ML IV PRN (23:00)
[2017-08-07] MEDS: DILAUDID IV PRN (23:00)
[2017-08-08] MEDS: DILAUDID IV PRN ×2 (01:50→08:28)
[2017-08-08] MEDS: LACTATED RINGERS 1,000 ML IV SCH ×2 (01:59→08:28)
--- NOTE | 2017-08-08 08:39 | Progress Note ---
Assessment and Plan patient doing well <12h post delivery, VSSAF, output good, dressing dry and intact, + flatus. Advance diet and activity as tolerated. encouraged breast feeding. Continue postop pathway. - Patient Problems (1) delivery delivered Current Visit: Yes Status: Acute (2) Rubella nonimmune status, delivered, current hospitalization Current Visit: Yes Status: Acute Plan to address problem: MMR ordered Subjective - Subjective Date of service: 08/08/17 Principal diagnosis: postop day 1 s/p c/s Interval history: EDC Confirmation: 07/28/2017 Past History : 4 Term Births: 1 Premature Births: 0 Living Children: 1 Para: 1 Mult. Births: 0 Prev : 0 Prev. attempt? 0 Aborta: 2 Elect. Ab: 1 Spont. Ab: 1 Ectopics: 0 # 1 Delivery date: 02/01/2005 Weeks Gestation: 41 labor: no Delivery type: Hours of labor: 7 Anesthesia type: epidural [place] 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 D&C: (2012) Cholecystectomy (2009) Family History Summary: Other family member - Has No Family History of Ovarvian Cancer - Entered On: 04/09/2017 Other family member - Has No Family History of Colon Cancer - Entered On: 2016 Other family member - Has No Family History of Breast Cancer - Entered On: 2016 Other family member - Has Family History of Coronary Heart Disease - Entered On : 04/09/2017 Social History: [employer] Sur[employer] Patient is single Risk Factors: Smoked Tobacco Use: Never smoker Drug use: no Alcohol use: yes Drinks per day: social Dietary Counseling: pn yes Past Medical History Surgery (Non-psychology intern): MANAGER FOOD Surgery (2012) LSC ovarian cystectomy? D&C: (2012) Cholecystectomy (2009) Abnormal PAP: positive, no follow up Uterine Anomaly: negative Social Hx: [employer] Sur[employer] Patient is single Infection History Hx of STD: HPV Personal hx. of genital herpes: no Partner hx. of genital herpes: no Genetic History Congenital Heart Defect: Mom: no Dad: no Padmini Disease: Mom: no Dad: no Thalassemia Mom: no Dad: no Neural Tube Defect Mom: no Dad: no Down's Syndrome Mom: no Dad: no Gamal-Sachs Mom: no Dad: no Sickle Cell Disease/Trait Mom: no Dad: no Hemophilia Mom: no Dad: no Muscular Dystrophy Mom: no Dad: no Cystic Fibrosis Mom: no Dad: no Will Chorea Mom: no Dad: no Mental Retardation Mom: no Dad: no Fragile X Mom: no Dad: no Other Genetic/Chromosomal Disorder Mom: no Dad: no Child w/other defect Mom: no Dad: no Active Medications (reviewed today): FORMULA 27-1 MG ORAL TABLET ( VIT-FE FUMARATE-FA) 1 po q day as directed Current Allergies (reviewed today): No known allergies Patient reports: appetite normal, pain well controlled, flatus, no nauseated : doing well, nursing well Objective - Vital Signs Latest vital signs: Vital Signs Temp Pulse Resp BP BP Pulse Ox 08/08/17 04:00 98.7 F 78 18 112/69 08/08/17 00:30 98.7 F 74 18 117/72 08/07/17 23:25 98.6 F 77 16 111/61 08/07/17 23:04 99.2 F 08/07/17 23:00 16 08/07/17 22:04 98.0 F 08/07/17 20:38 102 H 93 08/07/17 20:33 87 99 08/07/17 20:28 79 96 08/07/17 20:23 96 H 98 08/07/17 20:20 76 118/70 08/07/17 20:18 83 100 08/07/17 20:13 77 96 08/07/17 20:08 93 H 99 08/07/17 20:07 84 94 08/07/17 20:03 93 H 96 08/07/17 20:02 88 94 08/07/17 19:58 85 96 08/07/17 19:53 92 H 95 08/07/17 19:52 73 94 08/07/17 19:49 93 H 113/51 08/07/17 19:48 91 H 95 08/07/17 19:46 86 94 08/07/17 19:43 87 94 04/03/18 19:39 80 94 040318 19:38 88 97 0403/18 19:33 94 H 95 0318 19:31 78 94 0318 19:28 76 97 040318 19:25 94 H 94 0318 19:23 81 95 0318 19:21 71 99/51 18 19:20 84 94 18 19:18 94 H 95 18 19:13 95 H 96 18 19:10 86 103/56 18 19:08 72 98 0318 19:05 99.1 F 72 16 103/56 98 08/07/17 19:03 67 98 18 19:01 86 94 18 18:58 92 H 95 18 18:53 74 98 18 18:51 78 109/56 18 18:49 82 94 18 18:48 100 H 98 18 18:43 76 98 0318 18:38 80 96 18 18:33 92 H 95 18 18:29 107 H 94 18 18:28 104 H 95 18 18:23 98 H 95 18 18:19 111 H 96/56 18 18:18 94 H 97 18 18:17 89 93 18 18:13 72 98 0318 18:12 98 H 94 18 18:08 104 H 98 18 18:07 99 H 94 0318 18:03 94 H 96 0318 17:58 73 99 03/18 17:53 72 96 /0318 17:51 74 105/52 0318 17:48 99 H 97 0318 17:43 76 97 0318 17:38 80 98 /03/18 17:33 86 98 /0318 17:28 82 99 03/18 17:23 74 99 0318 17:19 76 105/54 0318 17:18 98 H 100 18 17:13 88 97 04//18 17:08 67 99 040318 17:03 95 H 95 18 16:58 68 100 //18 16:57 83 92 18 16:53 102 H 93 18 16:52 98 H 94 18 16:48 67 99 08/07/18 16:43 94 H 96 18 16:40 83 92 18 16:38 87 97 18 16:33 92 H 97 18 16:28 79 100 /18 16:23 69 100 18 16:20 66 111/67 18 16:18 75 98 18 16:13 63 100 18 16:08 94 H 98 18 16:03 72 98 /18 15:58 63 97 18 15:53 82 97 18 15:50 61 115/58 18 15:48 72 98 18 15:43 63 99 18 15:38 61 100 /18 15:34 18 /18 15:32 66 97 /0318 15:27 78 97 18 15:22 62 97 0318 15:19 70 105/57 18 15:17 64 100 18 15:13 72 94 18 15:12 60 95 18 15:07 78 97 18 15:03 63 94 18 15:02 63 94 0318 14:57 60 96 18 14:52 61 99 /03/18 14:50 59 L 105/58 /18 14:47 65 99 /03/18 14:42 59 L 100 18 14:37 64 97 04/0318 14:34 71 94 /03/18 14:32 61 97 /18 14:27 71 98 /03/18 14:26 78 94 18 14:22 72 97 0318 14:21 65 111/59 18 14:17 60 98 04/03/18 14:12 59 L 98 08/07/17 14:07 83 97 08/07/17 14:02 69 98 08/07/17 14:00 63 94 08/07/17 13:57 60 98 08/07/17 13:52 64 98 08/07/17 13:51 74 128/57 08/07/17 13:47 81 97 08/07/17 13:42 68 95 08/07/17 13:37 69 96 08/07/17 13:33 77 94 08/07/17 13:32 78 97 08/07/17 13:27 73 97 08/07/17 13:22 78 97 08/07/17 13:18 66 113/60 08/07/17 13:17 65 96 08/07/17 13:16 57 L 112/59 08/07/17 13:15 60 94 08/07/17 13:14 57 L 124/63 08/07/17 13:13 69 139/55 08/07/17 13:12 69 96 08/07/17 13:10 80 122/65 08/07/17 13:08 75 120/62 08/07/17 13:07 72 96 08/07/17 13:02 67 98 08/07/17 12:57 73 98 08/07/17 12:52 59 L 97 08/07/17 12:51 59 L 94 08/07/17 12:47 69 96 08/07/17 12:42 65 97 08/07/17 12:41 67 100/59 08/07/17 12:37 71 18 97 08/07/17 12:32 80 96 08/07/17 12:27 86 97 08/07/17 12:22 78 96 08/07/17 12:17 70 97 18 12:12 77 96 18 12:11 70 112/63 08/07/17 12:07 69 20 97 08/07/17 12:02 72 98 08/07/17 11:57 74 98 08/07/17 11:52 75 96 08/07/17 11:47 77 97 08/07/17 11:42 77 113/63 97 08/07/17 11:37 85 96 08/07/17 11:32 72 96 08/07/17 11:27 88 96 08/07/17 11:22 71 98 08/07/17 11:19 83 110/68 08/07/17 11:17 76 97 08/07/17 11:12 80 96 08/07/17 11:07 78 96 08/07/17 11:02 73 97 08/07/17 10:53 82 96 08/07/17 10:48 74 96 08/07/17 10:43 73 96 08/07/17 10:41 78 114/67 08/07/17 10:37 75 95 08/07/17 10:32 84 96 08/07/17 10:27 90 97 08/07/17 10:22 77 94 08/07/17 10:20 79 94 08/07/17 10:17 76 94 08/07/17 10:15 81 110/66 08/07/17 10:14 85 94 08/07/17 10:12 92 H 94 08/07/17 10:07 85 96 08/07/17 10:01 72 96 08/07/17 09:45 90 97 08/07/17 09:40 88 98 08/07/17 09:38 95 H 117/71 08/07/17 09:34 98.4 F 95 H 18 117/71 99 08/07/17 08:56 74 118/70 Intake and Output 08/07/17 08/08/17 08/08/17 23:59 07:59 15:59 Intake Total 2625.483 1448.75 810.417 Output Total 900 1800 Balance 1725.483 -351.25 810.417 Intake: IV 2625.483 968.75 810.417 Lactated Ringers 1,000 ml 693.75 968.75 810.417 @ 125 mls/hr IV DIRECT BALAJI Rx#:[id number] PITOCin/NS 30 UNIT/500ML 31.733 30 units In 500 ml @ 4 mls/hr IV TITR BALAJI Rx#: [id number] Oral 480 Output: Urine 900 1800 Indwelling Catheter 600 1800 Other: Total, Intake Amount 240 Total, Output Amount 600 1800 - Exam Breasts: Present: normal, Cardiovascular: Present: Regular rate Lungs: Present: Clear to auscultation, Normal air movement Abdomen: Present: normal appearance, soft Vulva: both: normal Uterus: Present: normal Extremities: Present: normal Incision: Present: normal, dry, dressed - Labs Labs: Abnormal lab results 08/07/17 Range/Units 09:14 WBC 14.7 H (4.5-11.0) K/mm3 RDW 15.4 H (13.2-15.2) %
[2017-08-08 09:15] LABS: Hematocrit 34.8 % (30.3-42.9); Hemoglobin 11.6 gm/dl (10.1-14.3)
[2017-08-08] MEDS ORDERED: M-M-R II VACCINE SUB-Q ONE (10:00)
[2017-08-08] MEDS: MOTRIN PO PRN ×2 (11:43→17:49)
[2017-08-08] MEDS: PERCOCET 5/325 PO PRN ×3 (11:43→23:23)
[2017-08-08] MEDS ORDERED: Fluarix Quad 2017-2018(36 MOS+ IM ONE (12:00)
[2017-08-09] MEDS: MOTRIN PO PRN ×2 (04:59→11:58)
--- NOTE | 2017-08-09 06:39 | Discharge Summary ---
Providers - Providers Date of Admission: 08/07/17 08:26 Date of discharge: 08/09/17 (pt desires d/c today if possible) Attending physician: BECCA WEIR Primary care physician: BECCA WEIR Hospitalization Reason for admission: induction of labor Delivery: Procedure: primary low transverse Episiotomy: none Laceration: none Incision: normal, dry, intact Other procedures: none complications: none Discharge diagnosis: IUP at term delivered baby: female Hospital course: uncomplicated section Pt A&O X 3 No c/o voiced VSS FF below umb Lochia scant Incision D&I Asymptomatic anemia Doing well s/p section P: d/c today with instructions RTO 1 week for postop care. Condition at discharge: Good Disposition: DC-01 TO HOME OR SELFCARE - Discharge Diagnoses (1) delivery delivered Status: Acute Comment: RTO 1 week Postop care Plan - Discharge Medications Prescriptions: Ibuprofen [Motrin 800 MG tab] 800 mg PO TID PRN #30 tablet PRN Reason: Pain oxyCODONE /ACETAMINOPHEN [Percocet 5/325 mg] 1 - 2 tab PO Q4HR PRN #30 tablet PRN Reason: Pain - Provider Discharge Summary Activity: routine, no sex for 6 weeks, no heavy lifting 4 weeks, no strenuous exercise Diet: routine Instructions: routine Additional instructions: [] Smoking cessation referral if applicable(refer to patient education folder for contact #) [] Refer to [facility] Booklet Call your doctor immediately for: * Fever > 100.5 * Heavy vaginal bleeding ( >1 pad per hour) * Severe persistent headache * Shortness of breath * Reddened, hot, painful area to leg or breast * Drainage or odor from incision. * Keep incision clean and dry at all times and follow doctor's instructions regarding bathing/showering - Follow up plan Follow up: BECCA WEIR MD [Primary Care Provider] - 7 Days (Congratulations! Please call [phone] to schedule your postoperative visit in 1 week. Take medications as prescribed. Call with concerns.)
[2017-08-09] MEDS: PERCOCET 5/325 PO PRN (11:58)
[2017-08-09 18:31] VITALS: BP 104/54
== END 2017-08-09 18:10 | disposition home or self-care (01) | DRG 765 ==
LOC: LD 08:26 → APU 20:43 → OB 23:29
PROVIDERS: ADMIT Obstetrics & Gynecology; ATTEND Obstetrics & Gynecology
PROC: 10D00Z1 Extraction of Products of Conception, Low, Open Approach (ICD-10-PCS; principal; 2017-08-07)
PROC: 10907ZC Drainage of Amniotic Fluid, Therapeutic from Products of Conception, Via Natural or Artificial Opening (ICD-10-PCS; 2017-08-07)
DX: O48.0 Post-term pregnancy (principal); Z68.41 Body mass index [BMI] 40.0-44.9, adult; Z3A.41 41 weeks gestation of pregnancy; Z37.0 Single live birth; O99.214 Obesity complicating childbirth; E66.9 Obesity, unspecified; O62.0 Primary inadequate contractions; O99.02 Anemia complicating childbirth; D64.9 Anemia, unspecified
CPT/HCPCS: 36415; 85014; 85018; 85027; 86592; 86850; 86900; 86901; 90686; 99211; C1765; G0463; J0595; J1170; J2274; J2590; J2765; J7120